=== PATIENT | female | born 1980 | race Caucasian/White ===

== ENCOUNTER 2020-03-06 12:12 | Emergency (ER) | payer OTHER ==
[~2020-03-06] VITALS: Ht 170.2 cm; Wt 105.7 kg
[~2020-03-06 12:12] MED LIST: CLOZ100T PO; COL250 PO; MAGN296S48 PO; MIRT15TA PO; PRAM0.5T4 PO; [UNRECOGNIZED DRUG - CODE] PO
--- NOTE | 2020-03-06 12:14 | NUR ---
PT WHEELCHAIR ASSISTED TO BED 07
[2020-03-06 12:19] VITALS: BP 117/76
--- NOTE | 2020-03-06 12:32 | NUR ---
PT WHEELCHAIR ASSISTED TO RESTROOM FOR COLLECTION OF URINE
--- NOTE | 2020-03-06 12:48 | NUR ---
C/O GENERALIZED WEAKNESS, UNCLEAR THINKING, LETHARGIC PT CONCERNED HER CHANGE OF PSYCH MEDS MAY CONTRIBUTE TO THIS. DENIES INJURY
[2020-03-06] MEDS ORDERED: NACL 0.9% 1,000 ML IV SCH (13:02)
[2020-03-06] MEDS ORDERED: ONDANSETRON 4 MG/2 ML VIAL IVP ONE (13:05)
--- NOTE | 2020-03-06 13:11 | NUR ---
PT TAKEN TO RADIOLOGY VIA
[2020-03-06 13:34] LABS: BASOPHILS # (AUTO) 0.1 K/uL (0.00-0.22); BASOPHILS % (AUTO) 0.4 % (0.0-2.0); EOSINOPHILS # (AUTO) 0.2 K/uL (0-0.4); HEMATOCRIT 37.1 % (36-48); HEMOGLOBIN 12.3 g/dL (12.0-16.0); LYMPHOCYTES # (AUTO) 2.4 K/uL (2.5-16.5); MEAN CORPUSCULAR HEMOGLOBIN 31 pg (27-31); MEAN CORPUSCULAR HGB CONC 33 g/dL (33-37); MEAN CORPUSCULAR VOLUME 93.7 fL (80-94); MONOCYTES # (AUTO) 0.5 K/uL (0.8-1.0); MONOCYTES % (AUTO) 4.4 % (1.7-9.3); NEUTROPHILS # (AUTO) 8.8 K/uL (1.8-7.7); NEUTROPHILS % (AUTO) 73.2 % (42.2-75.2); PLATELET COUNT (AUTO) 353 K/uL (140-450); RED BLOOD CELL COUNT(AUTO) 3.96 MIL/uL (4.20-5.40); RED CELL DISTRIBUTION WIDTH 15.6 % (11.6-13.7); WHITE BLOOD COUNT (AUTO) 12.1 K/uL (4.8-10.8)
[2020-03-06 14:01] LABS: ALBUMIN 3.3 g/dL (3.4-5.0); ANION GAP 17.1 (8-16); CARBON DIOXIDE 20.9 mmol/L (21-32); CREATININE 1.5 mg/dL (0.6-1.3); FREE T4 (FREE THYROXINE) 0.82 ng/dL (0.76-1.46); THYROID STIMULATING HORMONE 0.7 uIU/mL (0.34-3.74); TOTAL BILIRUBIN 0.2 mg/dL (0.0-1.0)
[2020-03-06 16:00] VITALS: BP 98/66
--- NOTE | 2020-03-06 16:05 | NUR ---
Patient discharged with v/s stable. Written and verbal after care instructions given and explained. Patient verbalized understanding. Ambulatory with steady gait. All questions addressed prior to discharge. Advised to follow up with PMD.
== END 2020-03-06 15:04 | disposition home or self-care (01) ==
LOC: MED 12:12
DX: R42 Dizziness and giddiness (principal); T43.595A Adverse effect of other antipsychotics and neuroleptics, initial encounter; J45.909 Unspecified asthma, uncomplicated; I51.89 Other ill-defined heart diseases; I10 Essential (primary) hypertension; N28.9 Disorder of kidney and ureter, unspecified; Z87.898 Personal history of other specified conditions; Z79.899 Other long term (current) drug therapy; Y92.89 Other specified places as the place of occurrence of the external cause
CPT/HCPCS: 36415; 70450; 80053; 81002; 81025; 83690; 84439; 84443; 85025; 96361; 96374; 99285; J2405; J7030; 93005; 99284

== ENCOUNTER 2020-08-16 17:39 | Emergency (ER) | payer OTHER ==
[~2020-08-16] VITALS: Ht 172.7 cm; Wt 120.3 kg
[2020-08-16 17:45] VITALS: BP 151/84
[2020-08-16] MEDS ORDERED: KETOROLAC 60 MG/2 ML VIAL IM ONE (18:20)
[2020-08-16] MEDS ORDERED: DEXAMETHASONE 10 MG/ML VIAL IM ONE (18:20)
[2020-08-16 18:47] VITALS: BP 151/84
== END 2020-08-16 18:46 | disposition home or self-care (01) ==
LOC: MED 17:39
DX: M54.32 Sciatica, left side (principal); N39.0 Urinary tract infection, site not specified; J45.909 Unspecified asthma, uncomplicated; I11.0 Hypertensive heart disease with heart failure; Z87.448 Personal history of other diseases of urinary system; Z88.8 Allergy status to other drugs, medicaments and biological substances; Z79.899 Other long term (current) drug therapy
CPT/HCPCS: 81002; 81025; 96372; 99284; J1100; J1885

== ENCOUNTER 2020-11-04 12:00 | Emergency (ER) | payer OTHER ==
[~2020-11-04] VITALS: Ht 175.3 cm; Wt 126.1 kg
[~2020-11-04 12:00] MED LIST changes: +MIRT-91 PO; -MIRT15TA PO
[2020-11-04 12:33] VITALS: BP 145/79
[2020-11-04] MEDS ORDERED: BACITRACIN OINT 500 UNITS/GM PKT TP ONE (13:00)
--- NOTE | 2020-11-04 13:07 | NUR ---
APPLIED BACITRACIN AND DRESSING TO RIGHT UPPER LEG WITHOUT ANY ISSUES
--- NOTE | 2020-11-04 13:32 | NUR ---
C/O INFECTED WOUND TO R THIGH. PT REPORTS CAUSING A SELF INFLICTED WOUND TO HER LEG THAT WAS NEVER TREATED AND IS NOW RED WITH DISCHARGE.
--- NOTE | 2020-11-04 13:32 | NUR ---
Patient discharged with v/s stable. Written and verbal after care instructions given and explained. Patient alert, oriented and verbalized understanding of instructions. Ambulatory with steady gait. All questions addressed prior to discharge. ID band removed. Patient advised to follow up with PMD. Rx of BACTRIM, KEFLEX, MOTRIN given. Patient educated on indication of medication including possible reaction and side effects. Opportunity to ask questions provided and answered.
[2020-11-04 13:33] VITALS: BP 145/79
== END 2020-11-04 13:32 | disposition home or self-care (01) ==
LOC: MED 12:00
DX: S81.801A Unspecified open wound, right lower leg, initial encounter (principal); L98.9 Disorder of the skin and subcutaneous tissue, unspecified; J45.909 Unspecified asthma, uncomplicated; I10 Essential (primary) hypertension; E78.5 Hyperlipidemia, unspecified; Z79.899 Other long term (current) drug therapy; Z88.2 Allergy status to sulfonamides; X58.XXXA Exposure to other specified factors, initial encounter; Y93.89 Activity, other specified; Y92.89 Other specified places as the place of occurrence of the external cause; Y99.8 Other external cause status
CPT/HCPCS: 90471; 90715; 99283

== ENCOUNTER 2020-12-09 11:34 | Emergency (ER) | payer OTHER ==
[~2020-12-09] VITALS: Ht 175.3 cm; Wt 86.2 kg
--- NOTE | 2020-12-09 11:40 | NUR ---
Patient ambulated to bed 9. RN evaluating patient at bedside.
[2020-12-09 11:42] VITALS: BP 69/26
[2020-12-09] MEDS ORDERED: PANTOPRAZOLE 40 MG INJ VIAL IVP ONE (12:00)
[2020-12-09] MEDS ORDERED: KETOROLAC 30 MG/ML VIAL IVP ONE (12:00)
[2020-12-09] MEDS ORDERED: NACL 0.9% 500 ML IV ONE (12:00)
--- NOTE | 2020-12-09 12:21 | NUR ---
X-Ray at bedside.
--- NOTE | 2020-12-09 12:52 | NUR ---
40 Y/O FEMALE BIB SELF C/O SUDDEN ONSET CHEST PAIN 7/10 BEGINNING AN HOUR AGO, ATRAUMATIC. PAIN IS SHARP, NON RADIATING, PATIENT STATES THERE IS A SHARP PAIN DURING INHALATION. DENIES ANY COUGH/FEVER. PATIENT STATES SHE SMOKED MARIJUANA 5 DAYS AGO, DENIES ANY OTHER RECREATIONAL DRUG USE. PATIENT APPEARS TREMBLING AND STATES SHE IS FEELING ANXIOUS, HX OF ANXIETY. GCS 15, AAOX4.
[2020-12-09 13:06] LABS: BASOPHILS # (AUTO) 0.1 K/uL (0.00-0.22); BASOPHILS % (AUTO) 0.7 % (0.0-2.0); EOSINOPHILS # (AUTO) 0.3 K/uL (0-0.4); EOSINOPHILS % (AUTO) 2.9 % (0.0-4.0); HEMATOCRIT 37.4 % (36-48); HEMOGLOBIN 12.4 g/dL (12.0-16.0); LYMPHOCYTES # (AUTO) 2.9 K/uL (2.5-16.5); LYMPHOCYTES % (AUTO) 25.5 % (20.5-51.1); MEAN CORPUSCULAR HEMOGLOBIN 30 pg (27-31); MEAN CORPUSCULAR HGB CONC 33 g/dL (33-37); MEAN CORPUSCULAR VOLUME 91.4 fL (80-94); MONOCYTES # (AUTO) 0.5 K/uL (0.8-1.0); MONOCYTES % (AUTO) 4.5 % (1.7-9.3); NEUTROPHILS # (AUTO) 7.6 K/uL (1.8-7.7); NEUTROPHILS % (AUTO) 66.4 % (42.2-75.2); PLATELET COUNT (AUTO) 382 K/uL (140-450); RED CELL DISTRIBUTION WIDTH 13.9 % (11.6-13.7); WHITE BLOOD COUNT (AUTO) 11.5 K/uL (4.8-10.8)
[2020-12-09 13:29] LABS: ALBUMIN 3.8 g/dL (3.4-5.0); ANION GAP 18.2 (8-16); CARBON DIOXIDE 19.7 mmol/L (21-32); CREATININE 1.5 mg/dL (0.6-1.3); POTASSIUM 3.9 mmol/L (3.5-5.1); TOTAL BILIRUBIN 0.2 mg/dL (0.0-1.0)
[2020-12-09 13:56] LABS: PROTHROMBIN TIME 9.1 secs (10.8-13.4)
[2020-12-09 14:34] VITALS: BP 142/68
--- NOTE | 2020-12-09 14:34 | NUR ---
Patient discharged with v/s stable. Written and verbal after care instructions given and explained. Patient alert, oriented and verbalized understanding of instructions. Ambulatory with steady gait. All questions addressed prior to discharge. ID band removed. Patient advised to follow up with PMD. Rx of MOTRIN, XANAX given. Patient educated on indication of medication including possible reaction and side effects. Opportunity to ask questions provided and answered.
== END 2020-12-09 14:34 | disposition home or self-care (01) ==
LOC: MED 11:34
DX: F41.9 Anxiety disorder, unspecified (principal); R07.89 Other chest pain; I13.10 Hypertensive heart and chronic kidney disease without heart failure, with stage 1 through stage 4 chronic kidney disease, or unspecified chronic kidney disease; N18.9 Chronic kidney disease, unspecified; J45.909 Unspecified asthma, uncomplicated; Z88.8 Allergy status to other drugs, medicaments and biological substances; Z20.828 Contact with and (suspected) exposure to other viral communicable diseases
CPT/HCPCS: 36415; 71045; 80053; 85025; 85379; 85610; 85730; 87426; 93005; 96361; 96374; 96375; 99285; C9113; J1885; J7030